=== PATIENT | female | born 1975 | race Caucasian/White ===

== ENCOUNTER 2023-12-08 03:53 | Inpatient (IN) | payer OTHER ==
[2023-12-08 04:03] VITALS: BMI 30.2
[2023-12-08] MEDS ORDERED: morphine SULFATE 4 MG/ML VIAL ONE ×2 (04:23→15:47)
[2023-12-08] MEDS ORDERED: ONDANSETRON 4 MG/2 ML VIAL ONE (04:23)
[2023-12-08] MEDS ORDERED: SUCRALFATE 1 GM TABLET (FP) ONE (04:51)
[2023-12-08] MEDS ORDERED: MAG HYDROX/AL HYDROX/SIMETH 30 ML UNIT-DOSE CUP ONE (04:51)
[2023-12-08] MEDS: morphine CARPU-JECT 4 MG/1 ML DISP.SYRIN IVPUSH ONE (05:19)
[2023-12-08] MEDS: ONDANSETRON 4 MG/2 ML VIAL IVPUSH ONE (05:20)
[2023-12-08] MEDS: SUCRALFATE 1 GM TABLET (FP) PO ONE (05:20)
[2023-12-08] MEDS: MAG HYDROX/AL HYDROX/SIMETH 30 ML UNIT-DOSE CUP PO ONE (05:20)
[2023-12-08 05:58] LABS: BASO % 0.7 % (0-2.0); EOS % 0.2 % (0-4.5); HEMATOCRIT 38.5 % (32.4-45.2); HEMOGLOBIN 12.7 GM/dL (10.7-15.3); LYMPH % 24.7 % (8-40); MCH 29.7 pg (25.7-33.7); MCHC 33.1 g/dl (32.0-36.0); MEAN CELL VOLUME 89.7 fl (80-96); MEAN PLT VOLUME 9.3 fl (7.5-11.1); MONO % 7.2 % (3.8-10.2); NEUT % 67.2 % (42.8-82.8); PLATELET COUNT 257 10^3/uL (134-434); RBC 4.29 M/mm3 (3.60-5.2); RDW 13.6 % (11.6-15.6); WHITE BLOOD COUNT 6.8 K/mm3 (4.0-10.0)
[2023-12-08] MEDS ORDERED: HYDROmorphone HCL CARPU-JECT 2 MG/1 ML DISP.SYRIN ONE ×2 (06:01→09:00)
[2023-12-08] MEDS ORDERED: ACETAMINOPHEN INJECTION 100 ML IVPB ONE ×2 (06:04→12:44)
[2023-12-08] MEDS: HYDROmorphone HCl 2 MG/ML VIAL IVPUSH ONE ×2 (06:08→09:10)
[2023-12-08] MEDS: ACETAMINOPHEN 1000 MG/100 ML BAG IVPB ONE (06:09)
[2023-12-08 06:14] LABS: POTASSIUM 3.5 mmol/L (3.5-5.1)
[2023-12-08 06:15] LABS: CALCIUM 9.1 mg/dL (8.5-10.1)
[2023-12-08 06:16] LABS: ALBUMIN 4.2 g/dl (3.4-5.0); BLOOD UREA NITROGEN 18.4 mg/dL (7-18)
[2023-12-08 06:19] LABS: CREATININE 0.7 mg/dL (0.55-1.3)
[2023-12-08 06:20] LABS: BILIRUBIN,TOTAL 0.7 mg/dL (0.2-1)
[2023-12-08 06:21] LABS: TOT PROT 7.7 g/dl (6.4-8.2)
[2023-12-08] MEDS ORDERED: ONDANSETRON 4 MG/2 ML VIAL IVPUSH PRN (11:55)
[2023-12-08] MEDS ORDERED: DEXTROSE 5%-NORMAL SALINE 1,000 ML IV SCH (12:00)
[2023-12-08] MEDS: LACTATED RINGERS SOLUTION 1,000 ML/1,000 ML INFUS.BAG IV SCH (12:29)
[2023-12-08] MEDS: PANTOPRAZOLE SODIUM 40 MG VIAL IVPUSH SCH (12:29)
[2023-12-08] MEDS: ACETAMINOPHEN 1000 MG/100 ML BAG IVPB PRN (12:45)
[2023-12-08 15:22] LABS: ALBUMIN 4.5 g/dl (3.4-5.0)
[2023-12-08 15:24] LABS: BILIRUBIN,DIRECT 0.2 mg/dL (0.0-0.2)
[2023-12-08 15:26] LABS: TOT PROT 8.2 g/dl (6.4-8.2)
[2023-12-08] MEDS: morphine SULFATE 4 MG/ML VIAL IVPUSH PRN (15:53)
[2023-12-09 09:07] LABS: BASO % 0.4 % (0-2.0); EOS % 0.1 % (0-4.5); HEMATOCRIT 37.1 % (32.4-45.2); HEMOGLOBIN 12.8 GM/dL (10.7-15.3); LYMPH % 18.1 % (8-40); MCH 30.8 pg (25.7-33.7); MCHC 34.5 g/dl (32.0-36.0); MEAN CELL VOLUME 89.1 fl (80-96); MEAN PLT VOLUME 9.1 fl (7.5-11.1); MONO % 7.7 % (3.8-10.2); NEUT % 73.7 % (42.8-82.8); PLATELET COUNT 251 10^3/uL (134-434); RBC 4.17 M/mm3 (3.60-5.2); RDW 13.9 % (11.6-15.6); WHITE BLOOD COUNT 7.8 K/mm3 (4.0-10.0)
[2023-12-09 09:22] LABS: POTASSIUM 3.8 mmol/L (3.5-5.1)
[2023-12-09 09:30] LABS: ALBUMIN 4.1 g/dl (3.4-5.0)
[2023-12-09 09:31] LABS: BLOOD UREA NITROGEN 7.6 mg/dL (7-18); MAGNESIUM 2.3 mg/dL (1.8-2.4)
[2023-12-09 09:33] LABS: CREATININE 0.8 mg/dL (0.55-1.3); PHOSPHOROUS 2.3 mg/dL (2.5-4.9)
[2023-12-09 09:35] LABS: TOT PROT 7.3 g/dl (6.4-8.2)
[2023-12-09] MEDS ORDERED: ENOXAPARIN NA (PORCINE) 40 MG/0.4 ML DISP.SYRIN SQ SCH (10:00)
[2023-12-09 11:26] LABS: BILIRUBIN,DIRECT 0.3 mg/dL (0.0-0.2)
[2023-12-09] MEDS ORDERED: ONDANSETRON 4 MG/2 ML VIAL IVPUSH PRN (11:39)
[2023-12-09] MEDS ORDERED: LIDOCAINE HCL/PF 2% SDV 5ML VIAL ONE (11:42)
[2023-12-09] MEDS ORDERED: PROPOFOL 20 ML ONE (11:43)
[2023-12-09] MEDS ORDERED: MIDAZOLAM HCL 2 MG/2 ML SINGLE DOSE VIAL ONE (11:43)
[2023-12-09] MEDS ORDERED: SUGAMMADEX SODIUM 200 MG/2 ML VIAL ONE (11:44)
[2023-12-09 11:49] LABS: INR 1.03 (0.83-1.09); PROTHROMBIN TIME (PATIENT) 11.8 SEC (9.7-13.0)
[2023-12-09] MEDS: LACTATED RINGERS SOLUTION 1,000 ML IV SCH (12:06)
[2023-12-09] MEDS: PIPERACILLIN/TAZOB 3.375 GM 3.375 GM in DEXTROSE 5%-WATER - 50 ML IVPB SCH (12:11)
[2023-12-09] MEDS ORDERED: SEVOFLURANE 250 ML BTL ONE (12:38)
[2023-12-09] MEDS: INDOMETHACIN 50 MG RECTAL SUPPOSITORY PR ONE (13:01)
[2023-12-09] MEDS: IOHEXOL 300 MG/ML INFUS..BTL IV ONE (15:20)
[2023-12-09] MEDS: LACTATED RINGERS SOLUTION 1,000 ML/1,000 ML INFUS.BAG IV SCH (17:33)
[2023-12-10 08:23] LABS: POTASSIUM 4.2 mmol/L (3.5-5.1)
[2023-12-10 08:25] LABS: ALBUMIN 3.4 g/dl (3.4-5.0); BLOOD UREA NITROGEN 10.6 mg/dL (7-18); CALCIUM 8.8 mg/dL (8.5-10.1)
[2023-12-10 08:27] LABS: BILIRUBIN,DIRECT 1.7 mg/dL (0.0-0.2)
[2023-12-10 08:29] LABS: CREATININE 0.7 mg/dL (0.55-1.3)
[2023-12-10 08:30] LABS: BILIRUBIN,TOTAL 3.6 mg/dL (0.2-1); TOT PROT 6.3 g/dl (6.4-8.2)
[2023-12-10 08:33] LABS: BASO % 0.1 % (0-2.0); HEMATOCRIT 33.4 % (32.4-45.2); HEMOGLOBIN 11.2 GM/dL (10.7-15.3); MCHC 33.4 g/dl (32.0-36.0); MEAN CELL VOLUME 89.9 fl (80-96); MEAN PLT VOLUME 9.5 fl (7.5-11.1); MONO % 5.3 % (3.8-10.2); NEUT % 87.6 % (42.8-82.8); PLATELET COUNT 249 10^3/uL (134-434); RBC 3.72 M/mm3 (3.60-5.2); RDW 13.9 % (11.6-15.6); WHITE BLOOD COUNT 12.5 K/mm3 (4.0-10.0)
[2023-12-10] MEDS: LACTATED RINGERS SOLUTION 1,000 ML/1,000 ML INFUS.BAG IV SCH ×2 (09:47→13:32)
[2023-12-10] MEDS: PIPERACILLIN/TAZOB 3.375 GM 3.375 GM in DEXTROSE 5%-WATER - 50 ML IVPB SCH ×2 (14:16→20:24)
[2023-12-10 16:46] LABS: POTASSIUM 3.7 mmol/L (3.5-5.1)
[2023-12-10 16:53] LABS: ALBUMIN 3.3 g/dl (3.4-5.0); BLOOD UREA NITROGEN 10.8 mg/dL (7-18); CALCIUM 9.2 mg/dL (8.5-10.1)
[2023-12-10 16:57] LABS: CREATININE 0.7 mg/dL (0.55-1.3)
[2023-12-10 16:58] LABS: BILIRUBIN,TOTAL 3.5 mg/dL (0.2-1)
[2023-12-10 16:59] LABS: TOT PROT 6.3 g/dl (6.4-8.2)
[2023-12-11 06:58] LABS: BASO % 0.5 % (0-2.0); EOS % 0.3 % (0-4.5); HEMATOCRIT 29.5 % (32.4-45.2); LYMPH % 26.8 % (8-40); MCH 30.4 pg (25.7-33.7); MEAN CELL VOLUME 89.4 fl (80-96); MONO % 6.4 % (3.8-10.2); PLATELET COUNT 195 10^3/uL (134-434); RDW 14.6 % (11.6-15.6); WHITE BLOOD COUNT 7.6 K/mm3 (4.0-10.0)
[2023-12-11 07:09] LABS: POTASSIUM 3.8 mmol/L (3.5-5.1)
[2023-12-11 07:13] LABS: ALBUMIN 3.2 g/dl (3.4-5.0); CALCIUM 8.6 mg/dL (8.5-10.1)
[2023-12-11 07:15] LABS: BLOOD UREA NITROGEN 9.9 mg/dL (7-18)
[2023-12-11 07:18] LABS: CREATININE 0.7 mg/dL (0.55-1.3)
[2023-12-11 07:19] LABS: BILIRUBIN,TOTAL 1.9 mg/dL (0.2-1)
[2023-12-11] MEDS: LACTATED RINGERS SOLUTION 1,000 ML/1,000 ML INFUS.BAG IV SCH (11:10)
[2023-12-12 06:43] LABS: ALBUMIN 3.1 g/dl (3.4-5.0); CALCIUM 8.3 mg/dL (8.5-10.1)
[2023-12-12 06:44] LABS: BLOOD UREA NITROGEN 5.9 mg/dL (7-18)
[2023-12-12 06:46] LABS: CREATININE 0.7 mg/dL (0.55-1.3)
[2023-12-12 06:48] LABS: BILIRUBIN,TOTAL 1.2 mg/dL (0.2-1); TOT PROT 6.1 g/dl (6.4-8.2)
[2023-12-12 06:51] LABS: BASO % 0.6 % (0-2.0); EOS % 0.5 % (0-4.5); HEMATOCRIT 29.8 % (32.4-45.2); HEMOGLOBIN 10.2 GM/dL (10.7-15.3); LYMPH % 42.9 % (8-40); MCH 30.8 pg (25.7-33.7); MCHC 34.1 g/dl (32.0-36.0); MEAN CELL VOLUME 90.2 fl (80-96); MEAN PLT VOLUME 9.1 fl (7.5-11.1); MONO % 7.6 % (3.8-10.2); NEUT % 48.4 % (42.8-82.8); PLATELET COUNT 221 10^3/uL (134-434); RDW 14.1 % (11.6-15.6); WHITE BLOOD COUNT 5.3 K/mm3 (4.0-10.0)
[2023-12-13 05:12] VITALS: RESP 18
[2023-12-13 09:13] LABS: BASO % 0.5 % (0-2.0); EOS % 0.5 % (0-4.5); HEMATOCRIT 34.4 % (32.4-45.2); HEMOGLOBIN 11.8 GM/dL (10.7-15.3); MCH 30.5 pg (25.7-33.7); MCHC 34.2 g/dl (32.0-36.0); MEAN CELL VOLUME 89.2 fl (80-96); MONO % 5.6 % (3.8-10.2); NEUT % 69.4 % (42.8-82.8); PLATELET COUNT 295 10^3/uL (134-434); RBC 3.85 M/mm3 (3.60-5.2); RDW 14.1 % (11.6-15.6)
[2023-12-13 09:38] LABS: POTASSIUM 4.2 mmol/L (3.5-5.1)
[2023-12-13 09:42] LABS: CALCIUM 9.5 mg/dL (8.5-10.1)
[2023-12-13 09:43] LABS: ALBUMIN 3.6 g/dl (3.4-5.0); BLOOD UREA NITROGEN 8.6 mg/dL (7-18)
[2023-12-13 09:46] LABS: CREATININE 0.8 mg/dL (0.55-1.3)
[2023-12-13 09:48] LABS: BILIRUBIN,TOTAL 0.8 mg/dL (0.2-1); TOT PROT 7.1 g/dl (6.4-8.2)
[2023-12-13 14:32] VITALS: BP 117/92; PULSE 76; TEMP 98.6
== END 2023-12-13 16:11 | disposition home or self-care (01) | DRG 446 ==
LOC: JER 03:53 → JERBED 10:27 → J7W 20:01 → OBSVTOIN 12-10 10:07
PROVIDERS: ADMIT Internal Medicine; ATTEND Internal Medicine
PROC: 0FC98ZZ Extirpation of Matter from Common Bile Duct, Via Natural or Artificial Opening Endoscopic (ICD-10-PCS; principal; 2023-12-09 11:00)
DX: K80.50 Calculus of bile duct without cholangitis or cholecystitis without obstruction (principal); K83.8 Other specified diseases of biliary tract; N28.1 Cyst of kidney, acquired; R74.01 Elevation of levels of liver transaminase levels; K57.10 Diverticulosis of small intestine without perforation or abscess without bleeding; R79.89 Other specified abnormal findings of blood chemistry
CPT/HCPCS: 36415; 71045-TC-FY; 74177-TC; 74181-TC; 74330-TC; 76705-TC; 80053; 80076; 82248; 83690; 83735; 84100; 84484; 84703; 85025; 85610; 86140; 86850; 86900; 86901; 93005; 93010; 99285-25; G0378; J0131